=== PATIENT | male | born 1975 | race Caucasian/White ===

== ENCOUNTER 2024-08-01 10:51 | Emergency (ER) | payer SELFPAY ==
[~2024-08-01] VITALS: Ht 177.8 cm; Wt 70.5 kg
[2024-08-01 10:58] VITALS: TEMP 98.2
[2024-08-01] MEDS ORDERED: NS 1,000 ML IV ONE (11:30)
[2024-08-01] MEDS ORDERED: fentaNYL 50 MCG/ML 2 ML VIAL IV ONE (11:30)
[2024-08-01] MEDS ORDERED: Ondansetron 4 MG/2 ML VIAL IV ONE (11:30)
[2024-08-01 12:10] LABS: ALANINE AMINOTRANSFERASE 11 U/L (0-55); ALBUMIN 4.7 g/dL (3.5-5.0); ALKALINE PHOSPHATASE 65 U/L (40-150); ANION GAP 19 mmol/L (7-16); AST,SGOT 19 U/L (5-34); BILIRUBIN,TOTAL 0.9 mg/dL (0.2-1.2); BLOOD UREA NITROGEN 18 mg/dL (9-21); CALCIUM 10.1 mg/dL (8.4-10.2); CHLORIDE 99 mEq/L (98-107); CREATININE, serum 1.25 mg/dL (0.72-1.25); GLUCOSE 126 mg/dL (70-99); LIPASE 16 U/L (8-78); POTASSIUM 3.1 mEq/L (3.5-4.5); SODIUM 140 mEq/L (136-145); TOTAL PROTEIN 8.6 g/dl (6.2-8.1)
[2024-08-01 12:23] LABS: TROPONIN-I < 0.010 ng/mL (0.00-0.033)
[2024-08-01] MEDS ORDERED: Ketorolac 15 MG/ML VIAL IV ONE (12:45)
[2024-08-01 12:48] LABS: URINE APPEARANCE CLEAR (CLEAR/HAZY); URINE BLOOD NEGATIVE (NEGATIVE); URINE COLOR Dark Yellow (YELLOW); URINE GLUCOSE NEGATIVE (NEGATIVE); URINE KETONE 3+ (NEGATIVE); URINE NITRATE NEGATIVE (NEGATIVE); URINE PROTEIN(semi-quant) 2+ (NEGATIVE)
[2024-08-01] MEDS ORDERED: Iohexol 300 - 100 ML VIAL IV ONE (13:07)
[2024-08-01] MEDS ORDERED: NS 100 ML IV SCH (13:08)
[2024-08-01 14:08] LABS: BASO % 0.5 % (0.0-2.0); EOS % 0.2 % (0.0-4.0); GRAN # 7.5 K/mm3 (1.4-6.5); HEMATOCRIT 46.7 % (42.0-52.0); HEMOGLOBIN 15.6 g/dl (13.5-18.0); LYMPH # 0.9 K/mm3 (1.2-3.4); LYMPH % 10.4 % (20.0-51.0); MEAN CELL VOLUME 88 fl (80.0-100.0); MEAN CORPUSCULAR HEMOGLOBIN 30 pg (27-31); MEAN CORPUSCULAR HGB CONC 33 g/dl (33.0-37.0); MEAN PLATELET VOLUME 10.1 fl (7.4-10.4); MONO # 0.4 K/mm3 (0.1-0.6); MONO % 4.6 % (1.7-9.3); PLATELET COUNT 147 K/mm3 (130-400); RED BLOOD COUNT 5.28 M/mm3 (4.20-5.60); REDCELL DISTRIBUTION WIDTH-CV 13.8 % (11.5-14.5)
[2024-08-01] MEDS ORDERED: cefTRIAXone 1 G in Water For Injection,Sterile 10 ML IV ONE (14:45)
[2024-08-01] MEDS ORDERED: cloNIDine 0.1 MG TAB PO ONE (14:45)
[2024-08-01] MEDS ORDERED: hydroCHLOROthiazide 25 MG TAB PO ONE (14:45)
[2024-08-01] MEDS ORDERED: MACROBID 1100 MG/CAP PO (14:59)
[2024-08-01] MEDS ORDERED: KLOR-CON 1010 MEQ PO (14:59)
[2024-08-01] MEDS ORDERED: HCTZ 25MG TAB25 MG PO (14:59)
[2024-08-01 15:33] VITALS: BP 99/61; PULSE 57
[2024-08-01 15:58] LABS: COLLECTION METHOD CLEAN CATCH
== END 2024-08-01 15:41 | disposition home or self-care (01) ==
LOC: COL.ER 10:51
PROVIDERS: Family Medicine
DX: N39.0 Urinary tract infection, site not specified (principal); R11.2 Nausea with vomiting, unspecified; I10 Essential (primary) hypertension; E87.6 Hypokalemia
CPT/HCPCS: J0696; J0780; J1885; J2405; J7030; Q9967